=== PATIENT | male | born 1970 | race Caucasian/White ===

== ENCOUNTER 2016-11-03 00:30 | Emergency (ER) | payer OTHER ==
[2016-11-03 00:36] VITALS: RESP 20
[2016-11-03] MEDS ORDERED: IPRATROPIUM-ALBUTEROL 3 ML NEB INHALATION STA (00:54)
--- NOTE | 2016-11-03 01:06 | ED ---
URI HPI - General Chief Complaint: Upper Respiratory Infection Stated Complaint: DONNA Time Seen by Provider: 11/03/16 00:42 Source: patient, RN notes reviewed Mode of arrival: ambulatory Limitations: no limitations - History of Present Illness Initial Comments: 45-year-old male presents emergency Department chief complaint cough and congestion 4 days. Patient states he was seen at [facility] and diagnosed with acute bronchitis, strep throat. Patient states that his present antibiotics and Tessalon Perles. Patient states not helping. Patient states that he has not tried any other cough suppressants. Patient denies fever, chills, night sweats. Patient denies any dizziness. Patient denies any chest pain. - Related Data Home Medications Medication Instructions Recorded Confirmed Citalopram Hydrobromide [CeleXA] 40 mg PO DAILY 03/09/14 11/03/16 Insulin Aspart [NovoLOG] 20 unit SQ DIRECTED 03/09/14 11/03/16 Insulin Glargine [Lantus] 35 units INJ HS 03/09/14 11/03/16 Lisinopril [Zestril] 20 mg PO BID 03/09/14 11/03/16 metFORMIN HCL [Glucophage] 500 mg PO BID 03/09/14 11/03/16 Previous Rx's Medication Instructions Recorded Naproxen Sodium [Anaprox Ds] 550 mg PO Q12HR #20 tab 06/08/14 Ibuprofen [Motrin] 800 mg PO Q6HR PRN #20 tab 06/18/14 Sulfamethox-Tmp 800-160Mg [Bactrim 2 each PO Q12HR #40 tab 06/18/14 DS 800-160 mg] Albuterol Nebulized [Ventolin 2.5 mg INHALATION Q4H PRN #25 nebu 11/03/16 Nebulized] Promethaz-Cod 6.25-10 mg/5 ml 5 ml PO Q6HR PRN #120 ml 11/03/16 [Phenergan with Codeine] Allergies Allergy/AdvReac Type Severity Reaction Status Date / Time BANDAIDES AdvReac Itching Uncoded 11/03/16 00:36 Review of Systems ROS Statement: Those systems with pertinent positive or pertinent negative responses have been documented in the HPI. ROS Other: All systems not noted in ROS Statement are negative. Past Medical History Past Medical History: Diabetes Mellitus, Hypertension Additional Past Medical History / Comment(s): kidney stone, arthritis, bone spur History of Any Multi-Drug Resistant Organisms: MRSA Date of last positivie culture/infection: 11/01/2014 MDRO Source:: Abdomen Past Surgical History: Cholecystectomy Additional Past Surgical History / Comment(s): vasectomy Past Anesthesia/Blood Transfusion Reactions: No Reported Reaction Past Psychological History: Depression Smoking Status: Never smoker Past Alcohol Use History: Rare Past Drug Use History: None Reported General Exam Limitations: no limitations General appearance: alert, in no apparent distress Head exam: Present: atraumatic, normocephalic, normal inspection Eye exam: Present: normal appearance, PERRL, EOMI. Absent: scleral icterus, conjunctival injection, periorbital swelling ENT exam: Present: normal exam, normal oropharynx, mucous membranes moist, TM's normal bilaterally, normal external ear exam Neck exam: Present: normal inspection. Absent: tenderness, meningismus, lymphadenopathy Respiratory exam: Present: wheezes. Absent: normal lung sounds bilaterally, respiratory distress, rales, rhonchi, stridor Cardiovascular Exam: Present: regular rate, normal rhythm, normal heart sounds. Absent: systolic murmur, diastolic murmur, rubs, gallop, clicks GI/Abdominal exam: Present: soft, normal bowel sounds. Absent: distended, tenderness, guarding, rebound, rigid Course Vital Signs 11/03/16 11/03/16 11/03/16 00:34 01:34 01:38 Temperature 98.1 F Pulse Rate 90 84 88 Respiratory 20 Rate Blood Pressure 185/95 O2 Sat by Pulse 95 Oximetry Medical Decision Making - Medical Decision Making 45-year-old male presented for upper extremity cold-like symptoms. Patient does feel better after DuoNeb treatment. Patient will be sent home with albuterol treatments. Return parameters were discussed. Disposition Clinical Impression: Acute bronchitis with bronchospasm Disposition: HOME SELF-CARE Condition: Stable Instructions: Bronchospasm (ED) Additional Instructions: Please return to the Emergency Department if symptoms worsen or any other concerns. Prescriptions: Albuterol Nebulized [Ventolin Nebulized] 2.5 mg INHALATION Q4H PRN #25 nebu PRN Reason: difficulty in breathing Promethaz-Cod 6.25-10 mg/5 ml [Phenergan with Codeine] 5 ml PO Q6HR PRN #120 ml PRN Reason: Cough Time of Disposition: 01:52
--- NOTE | 2016-11-03 01:22 | XR ---
EXAMINATION TYPE: XR chest 2V DATE OF EXAM: 11/03/2016 1:09 AM COMPARISON: 06/08/2014 HISTORY: Cough and chest pain TECHNIQUE: Frontal and lateral views of the chest are obtained. FINDINGS: Heart and mediastinum are normal. Lungs are clear. Diaphragm is normal. Bony thorax is int act. IMPRESSION: Normal chest. No change.
[2016-11-03 02:04] VITALS: BP 169/95; PULSE 89; TEMP 98.5
== END 2016-11-03 02:04 | disposition home or self-care (01) ==
LOC: EC 00:30
DX: J20.9 Acute bronchitis, unspecified (principal); I10 Essential (primary) hypertension; E11.9 Type 2 diabetes mellitus without complications; Z79.4 Long term (current) use of insulin; Z79.899 Other long term (current) drug therapy; Z79.84 Long term (current) use of oral hypoglycemic drugs
CPT/HCPCS: 71020; 94640; 99285

== ENCOUNTER 2016-12-01 02:24 | Emergency (ER) | payer OTHER ==
[2016-12-01] MEDS ORDERED: KETOROLAC 60 MG/2 ML VIAL IM STA (03:23)
--- NOTE | 2016-12-01 03:26 | ED ---
Upper Extremity HPI - General Chief Complaint: Extremity Injury, Upper Stated Complaint: shoulder,elbow pain Time Seen by Provider: 12/01/16 03:18 Source: patient, RN notes reviewed Mode of arrival: ambulatory Limitations: no limitations - History of Present Illness Initial Comments: 45-year-old male presents to the emergency room chief complaint of right shoulder pain. Patient states about 2 weeks ago he went to move a box and felt a pop in his right shoulder. Patient states she's been having some increasing pain to the right shoulder with movement. Patient states that tonight he was just throbbing more so he thought that he should be seen. Patient states there is no fall was just a simple lifting. Patient denies any cough cold runny nose with this. Patient states that he just could not tolerate the pain anymore homes without that he should be seen.Patient denies any recent fever, chills, shortness of breath, chest pain, back pain, abdominal pain, nausea vomiting, numbness or tingling, dysuria or hematuria, constipation or diarrhea, headaches or visual changes, or any other current symptoms. - Related Data Home Medications Medication Instructions Recorded Confirmed Insulin Aspart [NovoLOG] 20 unit SQ DIRECTED 03/09/14 12/01/16 Insulin Glargine [Lantus] 50 units INJ HS 03/09/14 12/01/16 Lisinopril [Zestril] 40 mg PO BID 03/09/14 12/01/16 metFORMIN HCL [Glucophage] 500 mg PO BID 03/09/14 12/01/16 Atenolol [Tenormin] 50 mg PO BID 12/01/16 12/01/16 Previous Rx's Medication Instructions Recorded Naproxen Sodium [Anaprox Ds] 550 mg PO Q12HR #20 tab 06/08/14 Ibuprofen [Motrin] 600 mg PO Q6HR PRN #20 tab 12/01/16 Allergies Allergy/AdvReac Type Severity Reaction Status Date / Time BANDAIDES AdvReac Itching Uncoded 11/03/16 00:36 Review of Systems ROS Statement: Those systems with pertinent positive or pertinent negative responses have been documented in the HPI. ROS Other: All systems not noted in ROS Statement are negative. Past Medical History Past Medical History: Diabetes Mellitus, Hypertension Additional Past Medical History / Comment(s): kidney stone, arthritis, bone spur History of Any Multi-Drug Resistant Organisms: MRSA Date of last positivie culture/infection: 11/01/2014 MDRO Source:: Abdomen Past Surgical History: Cholecystectomy Additional Past Surgical History / Comment(s): vasectomy Past Anesthesia/Blood Transfusion Reactions: No Reported Reaction Past Psychological History: Depression Smoking Status: Never smoker Past Alcohol Use History: Rare Past Drug Use History: None Reported General Exam - General Exam Comments Initial Comments: General: The patient is awake and alert, in no distress, and does not appear acutely ill. Neck: The neck is supple, there is no tenderness. Cardiovascular: There is a regular rate and rhythm. No murmur, rub or gallop is appreciated. Respiratory: Lungs are clear to auscultation, respirations are non-labored, breath sounds are equal. No wheezes, stridor, rales, or rhonchi. Musculoskeletal: Sensation intact with 2+ pulses that her upper joint. Full range of motion of the right hand right wrist and right elbow. Patient's physician tenderness anteriorly to the right shoulder. Patient has full passive range of motion of the right shoulder patient has about 2% active range of motion prior to pain. Negative drop arm test. Neurological: CN II-XII intact, There are no obvious motor or sensory deficits. Coordination appears grossly intact. Speech is normal. Skin: Skin is warm and dry and no rashes or lesions are noted. Psychiatric: Normal mood and affect. Limitations: no limitations Course Vital Signs 12/01/16 03:11 Temperature 98.2 F Pulse Rate 78 Respiratory 18 Rate Blood Pressure 185/98 O2 Sat by Pulse 97 Oximetry Medical Decision Making - Medical Decision Making 45-year-old male presents for right shoulder pain. This time patient perseverates shoulder strain. We did start him on anti-inflammatories. We discussed follow-up with orthopedic and he is given information. We discussed return parameters all patient's and family's questions. They're given the plan and they state that they understand. This time he will be discharged home. - Radiology Data Radiology results: report reviewed, image reviewed Disposition Clinical Impression: Sprain of right shoulder, Right shoulder tendonitis Disposition: HOME SELF-CARE Condition: Stable Instructions: Rotator Cuff Injury (ED) Additional Instructions: Please use medication as discussed. Please follow up with family doctor if symptoms have not improved over the next two days. Please return to the emergency room if your symptoms increase or worsen or for any other concerns. Prescriptions: Ibuprofen [Motrin] 600 mg PO Q6HR PRN #20 tab PRN Reason: Pain Referrals: Aashish Angelo DO [Primary Care Provider] - 1-2 days Girish Toro MD [STAFF PHYSICIAN] - 1-2 days Time of Disposition: 04:07
--- NOTE | 2016-12-01 03:54 | XR ---
EXAMINATION TYPE: XR shoulder complete RT DATE OF EXAM: 12/01/2016 3:38 AM COMPARISON: NONE HISTORY: Shoulder pain TECHNIQUE: 7 views FINDINGS: I see no fracture nor dislocation. There is some calcification at the greater tuberosity of the humerus. AC joint is intact. IMPRESSION: There is evidence of mild calcific tendinitis. No fracture.
[2016-12-01 04:48] VITALS: BP 178/72; PULSE 88; RESP 20; TEMP 97.5
== END 2016-12-01 04:47 | disposition home or self-care (01) ==
LOC: EC 02:24
DX: S43.401A Unspecified sprain of right shoulder joint, initial encounter (principal); M77.9 Enthesopathy, unspecified; X58.XXXA Exposure to other specified factors, initial encounter; E11.9 Type 2 diabetes mellitus without complications; Z79.4 Long term (current) use of insulin; Z79.899 Other long term (current) drug therapy; E16.2 Hypoglycemia, unspecified; I10 Essential (primary) hypertension
CPT/HCPCS: 73030; 99283; 96372; J1885

== ENCOUNTER 2018-03-05 23:19 | Emergency (ER) | payer OTHER ==
[2018-03-06] MEDS ORDERED: KETOROLAC 30 MG/ML 1 ML VIAL IM STA (00:11)
--- NOTE | 2018-03-06 00:16 | ED ---
Extremity Problem HPI - General Chief complaint: Extremity Problem,Nontraumatic Stated complaint: rt knee pain Time Seen by Provider: 03/06/18 00:07 Source: patient Mode of arrival: ambulatory Limitations: no limitations - History of Present Illness Initial comments: 47 year-old male patient presents to the emergency department today for complaints of right knee pain. Patient states that he has been having increased pain to the right knee for the last 2 days. States he does have a known varicose vein to the area. States that the area has become red and hot over the course of the day today. Patient states he has been taking ibuprofen which has not helped much with his discomfort. He denies any injuries. He denies any fever or chills with this. Denies any numbness or tingling to the leg. Denies any recent travel. Patient does have a past medical history significant for diabetes and hypertension, states that both are well controlled. Patient denies any recent rash, fever, chills, shortness breath, chest pain, palpitations, abdominal pain, nausea, vomiting, diarrhea, constipation, back pain, numbness, tingling, dizziness, weakness, hematuria, dysuria, urinary urgency, urinary frequency, headache, visual changes, or any other complaints. - Related Data Home Medications Medication Instructions Recorded Confirmed Insulin Aspart [NovoLOG] 40 unit SQ AC-BRKFST 03/09/14 03/05/18 Lisinopril [Zestril] 40 mg PO DIRECTED 03/09/14 12/01/16 metFORMIN HCL [Glucophage] 500 mg PO BID 03/09/14 03/05/18 Atenolol [Tenormin] 50 mg PO BID 12/01/16 03/05/18 Insulin Aspart [NovoLOG 30 unit SQ AC-SUPPER 03/05/18 03/05/18 (formulary)] Insulin Aspart [NovoLOG 40 unit SQ AC-LUNCH 03/05/18 03/05/18 (formulary)] Insulin Glargine,Hum.rec.anlog 40 unit SQ HS 03/05/18 03/05/18 [Basaglar Katieikpen U-100] Unknown New Bp Med 1 tab PO DIRECTED 03/05/18 03/05/18 Allergies Allergy/AdvReac Type Severity Reaction Status Date / Time BANDAIDES AdvReac Rash/Hives Uncoded 03/05/18 23:49 Review of Systems ROS Statement: Those systems with pertinent positive or pertinent negative responses have been documented in the HPI. ROS Other: All systems not noted in ROS Statement are negative. Past Medical History Past Medical History: Diabetes Mellitus, Hypertension Additional Past Medical History / Comment(s): kidney stone, arthritis, bone spur History of Any Multi-Drug Resistant Organisms: MRSA Date of last positivie culture/infection: 11/01/2014 MDRO Source:: Abdomen Past Surgical History: Cholecystectomy Additional Past Surgical History / Comment(s): vasectomy Past Anesthesia/Blood Transfusion Reactions: No Reported Reaction Past Psychological History: Depression Smoking Status: Never smoker Past Alcohol Use History: Rare Past Drug Use History: None Reported General Exam Limitations: no limitations General appearance: alert, in no apparent distress, other (This is a well- developed, morbidly obese male patient in no acute distress. Vital signs upon presentation are temperature 97.7F, pulse 90, respirations 20, blood pressure 181/89, pulse ox 98% on room air.) Respiratory exam: Present: normal lung sounds bilaterally. Absent: respiratory distress, wheezes, rales, rhonchi, stridor Cardiovascular Exam: Present: regular rate, normal rhythm, normal heart sounds. Absent: systolic murmur, diastolic murmur, rubs, gallop, clicks GI/Abdominal exam: Present: soft, normal bowel sounds. Absent: distended, tenderness, guarding, rebound, rigid Extremities exam: Present: full ROM, tenderness (Right anterior knee), normal capillary refill, other (There is linear area of tenderness, warmth, and erythema to the right anterior knee. Remainder of leg is pink, warm, and dry. Cap refill is less than 3 seconds. Pedal and post tibial pulses 2+ and equal bilaterally. ). Absent: normal inspection, pedal edema, joint swelling, calf tenderness Neurological exam: Present: alert, oriented X3, CN II-XII intact Psychiatric exam: Present: normal affect, normal mood Skin exam: Present: warm, dry, intact, normal color. Absent: rash Course Vital Signs 03/05/18 03/06/18 03/06/18 23:26 01:29 02:07 Temperature 97.7 F 97.8 F Pulse Rate 90 65 Respiratory 20 18 Rate Blood Pressure 181/89 147/62 O2 Sat by Pulse 98 98 Oximetry Medical Decision Making - Medical Decision Making 47 old male patient presented to the emergency department today for evaluation of pain and erythema to the right knee. Ultrasound venous Doppler duplex was obtained and showed no acute deep venous thrombosis to the right lower extremity. Did discuss findings with the patient. Did discuss that his symptoms are most consistent with a superficial thrombophlebitis. He is instructed to take his home Motrin 3 times daily with food, he is instructed to apply warm compresses to the right knee. He is instructed to follow-up with his primary care physician for recheck in 1-2 days. Return parameters discussed. He verbalizes understanding and agrees with this plan. - Radiology Data Radiology results: report reviewed, image reviewed Ultrasound duplex right lower extremity of the veins was obtained, report was reviewed in its entirety. Impression by Dr. Moreira shows no evidence of deep venous thrombosis. Disposition Clinical Impression: Phlebitis of right leg Disposition: HOME SELF-CARE Condition: Good Instructions: Superficial Thrombophlebitis (ED) Additional Instructions: Apply warm compresses to the right knee. Continue taking ibuprofen 3 times daily with food. Follow-up with your primary care physician for recheck in 1-2 days. Return here immediately for any new, worsening, or concerning symptoms. Is patient prescribed a controlled substance at d/c from ED?: No Referrals: Aashish Angelo DO [Primary Care Provider] - 1-2 days Time of Disposition: 01:42
[2018-03-06 01:30] VITALS: BP 147/62; PULSE 65; RESP 18
--- NOTE | 2018-03-06 01:38 | US ---
EXAM: US Duplex Right Lower Extremity Veins CLINICAL HISTORY: ITS.REASON US Reason: Pain TECHNIQUE: Real-time duplex ultrasound scan of the right lower extremity veins integrating B-mode two-dimensional vascular structure, Doppler spectral analysis, color flow Doppler imaging and compression. COMPARISON: 06/22/14. FINDINGS: Deep veins: No DVT in the visualized common femoral, femoral, proximal deep femoral or popliteal veins. The veins are compressible with normal color flow and augmentation. Superficial veins: Unremarkable as visualized. Soft tissues: No acute findings. IMPRESSION: No evidence of deep venous thrombosis.
[2018-03-06 02:08] VITALS: TEMP 97.8
== END 2018-03-06 02:07 | disposition home or self-care (01) ==
LOC: EC 23:19
DX: I80.3 Phlebitis and thrombophlebitis of lower extremities, unspecified (principal); I10 Essential (primary) hypertension; E11.9 Type 2 diabetes mellitus without complications; E66.01 Morbid (severe) obesity due to excess calories; Z79.4 Long term (current) use of insulin; Z79.899 Other long term (current) drug therapy; Z91.048 Other nonmedicinal substance allergy status; Z86.14 Personal history of Methicillin resistant Staphylococcus aureus infection; Z68.44 Body mass index [BMI] 60.0-69.9, adult
CPT/HCPCS: 99283; 93971; J1885

== ENCOUNTER 2018-04-20 05:12 | Emergency (ER) | payer OTHER ==
--- NOTE | 2018-04-20 05:22 | ED ---
General Adult HPI - General Stated complaint: Left Ankle Injury Time Seen by Provider: 04/20/18 05:15 Source: RN notes reviewed - History of Present Illness Initial comments: This is a 47-year-old male who presents emergency Department complaining of left foot pain. Patient states she stepped in a soft spot ER early in the week and hurting and then tonight walking up the stairs his foot slipped off the step and now his foot hurts more. When you ask him where exactly his foot hurts she says the whole foot and he is not specific about. Patient does deny ankle pain or knee pain. - Related Data Home Medications Medication Instructions Recorded Confirmed Insulin Aspart [NovoLOG] 40 unit SQ AC-BRKFST 03/09/14 03/05/18 Lisinopril [Zestril] 40 mg PO DIRECTED 03/09/14 12/01/16 metFORMIN HCL [Glucophage] 500 mg PO BID 03/09/14 03/05/18 Atenolol [Tenormin] 50 mg PO BID 12/01/16 03/05/18 Insulin Aspart [NovoLOG 30 unit SQ AC-SUPPER 03/05/18 03/05/18 (formulary)] Insulin Aspart [NovoLOG 40 unit SQ AC-LUNCH 03/05/18 03/05/18 (formulary)] Insulin Glargine,Hum.rec.anlog 40 unit SQ HS 03/05/18 03/05/18 [Basaglar Kwikpen U-100] Unknown New Bp Med 1 tab PO DIRECTED 03/05/18 03/05/18 Allergies Allergy/AdvReac Type Severity Reaction Status Date / Time BANDAIDES AdvReac Rash/Hives Uncoded 03/05/18 23:49 Review of Systems ROS Statement: Those systems with pertinent positive or pertinent negative responses have been documented in the HPI. ROS Other: All systems not noted in ROS Statement are negative. Past Medical History Past Medical History: Diabetes Mellitus, Hypertension Additional Past Medical History / Comment(s): kidney stone, arthritis, bone spur History of Any Multi-Drug Resistant Organisms: MRSA Date of last positivie culture/infection: 11/01/2014 MDRO Source:: Abdomen Past Surgical History: Cholecystectomy Additional Past Surgical History / Comment(s): vasectomy Past Anesthesia/Blood Transfusion Reactions: No Reported Reaction Past Psychological History: Depression Smoking Status: Never smoker Past Alcohol Use History: Rare Past Drug Use History: None Reported General Exam - General Exam Comments Initial Comments: GENERAL Patient is well-developed and well-nourished. Patient is in mild distress. EYES Patient's pupils are equal and round. Extraocular motion is intact SKIN Unremarkable NEURO The patient is alert and oriented 3 PYSCH Patient has normal interpersonal interactions. MUSCULOSKELETAL Patient has some minimal tenderness over the first metatarsal Course Vital Signs 04/20/18 05:21 Temperature 98.5 F Pulse Rate 87 Respiratory 18 Rate Blood Pressure 143/93 O2 Sat by Pulse 96 Oximetry Medical Decision Making - Medical Decision Making X-ray shows no acute abnormality. Patient is able to ambulate on the foot. Disposition Clinical Impression: Foot sprain Disposition: HOME SELF-CARE Condition: Good Instructions: Foot Sprain (ED) Is patient prescribed a controlled substance at d/c from ED?: No Referrals: Aashish Angelo DO [Primary Care Provider] - 1-2 days Time of Disposition: 05:34
[2018-04-20 05:23] VITALS: RESP 18
[2018-04-20] MEDS ORDERED: KETOROLAC 60 MG/2 ML VIAL IM STA (05:34)
--- NOTE | 2018-04-20 06:20 | XR ---
EXAM: XR Left Foot Complete, 3 or More Views CLINICAL HISTORY: ITS.REASON XR Reason: Pain TECHNIQUE: Frontal, lateral and oblique views of the left foot. COMPARISON: No relevant prior studies available. FINDINGS: Bones/joints: Marginal osteophytes at the talonavicular joint. No acute fracture. No dislocation. Soft tissues: Diffuse soft tissue swelling. No radiopaque foreign body. IMPRESSION: Diffuse soft tissue swelling.
[2018-04-20 06:31] VITALS: BP 126/58; PULSE 72; TEMP 97.6
== END 2018-04-20 06:29 | disposition home or self-care (01) ==
LOC: EC 05:12
DX: S93.602A Unspecified sprain of left foot, initial encounter (principal); E11.9 Type 2 diabetes mellitus without complications; I10 Essential (primary) hypertension; Z86.14 Personal history of Methicillin resistant Staphylococcus aureus infection; Z79.4 Long term (current) use of insulin; Z79.899 Other long term (current) drug therapy; Z91.048 Other nonmedicinal substance allergy status; W18.43XA Slipping, tripping and stumbling without falling due to stepping from one level to another, initial encounter; Y92.009 Unspecified place in unspecified non-institutional (private) residence as the place of occurrence of the external cause; Y93.01 Activity, walking, marching and hiking
CPT/HCPCS: 73630; 99283; 96372; J1885

== ENCOUNTER 2018-05-09 20:14 | Emergency (ER) | payer OTHER ==
[2018-05-09 21:37] LABS: Basophils # (A) 0.1 k/uL (0-0.2); Basophils % (A) 1 %; Eosinophils # (A) 0.3 k/uL (0-0.7); Eosinophils % (A) 3 %; HCT 40.9 % (39.0-53.0); HGB 13.7 gm/dL (13.0-17.5); Lymphocytes # (A) 2.3 k/uL (1.0-4.8); Lymphocytes % (A) 24 %; MCH 29.9 pg (25.0-35.0); MCHC 33.5 g/dL (31.0-37.0); MCV 89.5 fL (80.0-100.0); Mean Platelet Volume 7.1; Monocytes # (A) 0.6 k/uL (0-1.0); Monocytes % (A) 6 %; Neutrophils # (A) 6.1 k/uL (1.3-7.7); Neutrophils % (A) 65 %; Platelet Count 291 k/uL (150-450); RBC 4.57 m/uL (4.30-5.90); RDW 13.7 % (11.5-15.5); WBC 9.4 k/uL (3.8-10.6)
[2018-05-09 21:44] LABS: INR 1.2 (<1.2); Partial Thromboplastin Time 23.1 sec (22.0-30.0); Prothrombin Time 11.8 sec (9.0-12.0)
[2018-05-09 21:45] LABS: ALT 58 U/L (21-72); AST 52 U/L (17-59); Alkaline Phosphatase 56 U/L (38-126); Amylase 31 U/L (30-110); Anion Gap 13 mmol/L; Blood Urea Nitrogen 10 mg/dL (9-20); Calcium 9.4 mg/dL (8.4-10.2); Carbon Dioxide 27 mmol/L (22-30); Chloride 100 mmol/L (98-107); Glucose 194 mg/dL (74-99); Lipase 35 U/L (23-300); Potassium 4.2 mmol/L (3.5-5.1); Sodium 140 mmol/L (137-145); Total Bilirubin 0.5 mg/dL (0.2-1.3)
--- NOTE | 2018-05-09 22:15 | ED ---
Nausea/Vomiting/Diarrhea HPI - General Chief complaint: Nausea/Vomiting/Diarrhea Stated complaint: Vomiting Time Seen by Provider: 05/09/18 21:02 Source: patient, RN notes reviewed Mode of arrival: ambulatory Limitations: no limitations - History of Present Illness Initial comments: This is a 47-year-old male who presents to the emergency department with chief complaint of vomiting and diarrhea. Patient states that he has been unable to keep down any solid foods for the past one month. He states that over the past 2 weeks his vomiting and diarrhea has increased. He states he feels full even after eating a few pieces of watermelon and instantly becomes nauseous. Patient states he has been trying to eat small amounts because he is diabetic. Patient also complains of right testicular pain that has been present for the past one month as well. He describes it as a squeezing and stabbing sensation. He states that this is not constant, it does not occur while he is sitting, only when he is standing. Patient does report a history of vasectomy. He also reports a history of cholecystectomy. Patient is morbidly obese and has type 2 diabetes and hypertension. Denies any significant abdominal pain. Denies fevers or chills chest pain or shortness of breath, constipation, dysuria or hematuria. Denies flank pain. - Related Data Home Medications Medication Instructions Recorded Confirmed Insulin Aspart [NovoLOG] 40 unit SQ AC-BRKFST 03/09/14 03/05/18 Lisinopril [Zestril] 40 mg PO DIRECTED 03/09/14 12/01/16 metFORMIN HCL [Glucophage] 500 mg PO BID 03/09/14 03/05/18 Atenolol [Tenormin] 50 mg PO BID 12/01/16 03/05/18 Insulin Aspart [NovoLOG 30 unit SQ AC-SUPPER 03/05/18 03/05/18 (formulary)] Insulin Aspart [NovoLOG 40 unit SQ AC-LUNCH 03/05/18 03/05/18 (formulary)] Insulin Glargine,Hum.rec.anlog 40 unit SQ HS 03/05/18 03/05/18 [Basaglar Kwikpen U-100] Unknown New Bp Med 1 tab PO DIRECTED 03/05/18 03/05/18 Allergies Allergy/AdvReac Type Severity Reaction Status Date / Time BANDAIDES AdvReac Rash/Hives Uncoded 05/09/18 20:42 Review of Systems ROS Statement: Those systems with pertinent positive or pertinent negative responses have been documented in the HPI. ROS Other: All systems not noted in ROS Statement are negative. Past Medical History Past Medical History: Diabetes Mellitus, Hypertension Additional Past Medical History / Comment(s): kidney stone, arthritis, bone spur History of Any Multi-Drug Resistant Organisms: MRSA Date of last positivie culture/infection: 11/01/2014 MDRO Source:: Abdomen Past Surgical History: Cholecystectomy Additional Past Surgical History / Comment(s): vasectomy Past Anesthesia/Blood Transfusion Reactions: No Reported Reaction Past Psychological History: Depression Smoking Status: Never smoker Past Alcohol Use History: Rare Past Drug Use History: None Reported General Exam - General Exam Comments Initial Comments: General: Awake and alert, well-developed; in no apparent distress. Morbidly obese male lying comfortably on ED stretcher. HEENT: Head atraumatic, normocephalic. Pupils are equal, round and reactive to light. Extraocular movements intact. Oropharynx moist without erythema or exudate. Neck: Supple. Normal ROM. Cardiovascular: Regular rate and rhythm. No murmurs, rubs or gallops. Chest symmetrical. Respiratory: Lungs clear to auscultation bilaterally. No wheezes, rales or rhonchi. Normal respiratory effort with no use of accessory muscles. Abdomen: Soft, non-distended. Mild tenderness on palpation of epigastric region and right upper quadrant. No rigidity, rebound or guarding. Normal bowel sounds in all 4 quadrants. Musculoskeletal: Normal ROM, no tenderness bilateral upper and lower extremities. Ambulating normally. Skin: [place], warm and dry without rashes or lesions. Neurological: Alert and oriented x3. CN II-XII grossly intact. Speech is fluent and answers are appropriate. No focal neuro deficits. Psychiatric: Normal mood and affect. No overt signs of depression or anxiety noted. Limitations: no limitations exam: Present: normal inspection, testicular tenderness (right testicle). Absent: urethral discharge, scrotal swelling Course Vital Signs 05/09/18 05/09/18 20:38 23:50 Temperature 97.9 F 98.5 F Pulse Rate 84 74 Respiratory 16 20 Rate Blood Pressure 150/84 157/74 O2 Sat by Pulse 97 97 Oximetry Medical Decision Making - Medical Decision Making This is a 47-year-old male presents to the emergency department chief complaint of vomiting and diarrhea for the past one month. He states that this has worsened over the past 2 weeks. CBC, CMP and UA are unremarkable. Patient also complained of right testicular pain for the past one month. An ultrasound with Doppler was obtained and revealed no acute abnormalities. Findings were discussed with patient. Recommend following up with gastroenterology if symptoms persist. Vital signs are stable and patient is in no acute distress. He is discharged at this time. He is in agreement with plan and voices understanding. All questions answered. - Lab Data Result diagrams: 05/09/18 21:21 05/09/18 21:21 Lab Results 05/09/18 05/09/18 05/09/18 Range/Units 21:21 21:21 21:21 WBC 9.4 (3.8-10.6) k/uL RBC 4.57 (4.30-5.90) m/uL Hgb 13.7 (13.0-17.5) gm/dL Hct 40.9 (39.0-53.0) % MCV 89.5 (80.0-100.0) fL MCH 29.9 (25.0-35.0) pg MCHC 33.5 (31.0-37.0) g/dL RDW 13.7 (11.5-15.5) % Plt Count 291 (150-450) k/uL Neutrophils % 65 % Lymphocytes % 24 % Monocytes % 6 % Eosinophils % 3 % Basophils % 1 % Neutrophils # 6.1 (1.3-7.7) k/uL Lymphocytes # 2.3 (1.0-4.8) k/uL Monocytes # 0.6 (0-1.0) k/uL Eosinophils # 0.3 (0-0.7) k/uL Basophils # 0.1 (0-0.2) k/uL PT 11.8 (9.0-12.0) sec INR 1.2 H (<1.2) APTT 23.1 (22.0-30.0) sec Sodium 140 (137-145) mmol/L Potassium 4.2 (3.5-5.1) mmol/L Chloride 100 (98-107) mmol/L Carbon Dioxide 27 (22-30) mmol/L Anion Gap 13 mmol/L BUN 10 (9-20) mg/dL Creatinine 0.60 L (0.66-1.25) mg/dL Est GFR (CKD-EPI)AfAm >90 (>60 ml/min/1.73 sqM) Est GFR (CKD-EPI)NonAf >90 (>60 ml/min/1.73 sqM) Glucose 194 H (74-99) mg/dL Calcium 9.4 (8.4-10.2) mg/dL Total Bilirubin 0.5 (0.2-1.3) mg/dL AST 52 (17-59) U/L ALT 58 (21-72) U/L Alkaline Phosphatase 56 (38-126) U/L Total Protein 7.0 (6.3-8.2) g/dL Albumin 4.0 (3.5-5.0) g/dL Amylase 31 (30-110) U/L Lipase 35 (23-300) U/L Urine Color Urine Appearance (Clear) Urine pH (5.0-8.0) Ur Specific [place] (1.001-1.035) Urine Protein (Negative) Urine Glucose (UA) (Negative) Urine Ketones (Negative) Urine Blood (Negative) Urine Nitrite (Negative) Urine Bilirubin (Negative) Urine Urobilinogen (<2.0) mg/dL Ur Leukocyte Esterase (Negative) Urine RBC (0-5) /hpf Urine WBC (0-5) /hpf Ur Squamous Epith Cells (0-4) /hpf Hyaline Casts (0-2) /lpf Urine Mucus (None) /hpf 05/09/18 Range/Units 23:12 WBC (3.8-10.6) k/uL RBC (4.30-5.90) m/uL Hgb (13.0-17.5) gm/dL Hct (39.0-53.0) % MCV (80.0-100.0) fL MCH (25.0-35.0) pg MCHC (31.0-37.0) g/dL RDW (11.5-15.5) % Plt Count (150-450) k/uL Neutrophils % % Lymphocytes % % Monocytes % % Eosinophils % % Basophils % % Neutrophils # (1.3-7.7) k/uL Lymphocytes # (1.0-4.8) k/uL Monocytes # (0-1.0) k/uL Eosinophils # (0-0.7) k/uL Basophils # (0-0.2) k/uL PT (9.0-12.0) sec INR (<1.2) APTT (22.0-30.0) sec Sodium (137-145) mmol/L Potassium (3.5-5.1) mmol/L Chloride (98-107) mmol/L Carbon Dioxide (22-30) mmol/L Anion Gap mmol/L BUN (9-20) mg/dL Creatinine (0.66-1.25) mg/dL Est GFR (CKD-EPI)AfAm (>60 ml/min/1.73 sqM) Est GFR (CKD-EPI)NonAf (>60 ml/min/1.73 sqM) Glucose (74-99) mg/dL Calcium (8.4-10.2) mg/dL Total Bilirubin (0.2-1.3) mg/dL AST (17-59) U/L ALT (21-72) U/L Alkaline Phosphatase (38-126) U/L Total Protein (6.3-8.2) g/dL Albumin (3.5-5.0) g/dL Amylase (30-110) U/L Lipase (23-300) U/L Urine Color Yellow Urine Appearance Cloudy (Clear) Urine pH 5.5 (5.0-8.0) Ur Specific [place] 1.043 H (1.001-1.035) Urine Protein Trace H (Negative) Urine Glucose (UA) Negative (Negative) Urine Ketones Negative (Negative) Urine Blood Negative (Negative) Urine Nitrite Negative (Negative) Urine Bilirubin Negative (Negative) Urine Urobilinogen <2.0 (<2.0) mg/dL Ur Leukocyte Esterase Negative (Negative) Urine RBC 3 (0-5) /hpf Urine WBC 3 (0-5) /hpf Ur Squamous Epith Cells 1 (0-4) /hpf Hyaline Casts 10 H (0-2) /lpf Urine Mucus Few H (None) /hpf - Radiology Data Radiology results: report reviewed CT abdomen and pelvis with contrast impression: No evidence of renal stone or obstruction. No dilated ducts. Exam limited due to patient's size. Subtle inflammatory change in the mesenteric fat or pericolic fat cannot be evaluated because of the patient's size. Ultrasound scrotum with Doppler impression: Negative exam. No evidence of testicular torsion or mass. Disposition Clinical Impression: Vomiting and diarrhea Disposition: HOME SELF-CARE Condition: Good Instructions: Acute Nausea and Vomiting (ED), Acute Diarrhea (ED) Additional Instructions: Please take medications as prescribed. Please follow up with primary care provider within 1-2 days. Return to emergency department if symptoms should worsen or any concerns arise. Is patient prescribed a controlled substance at d/c from ED?: No Referrals: Aashish Angelo DO [Primary Care Provider] - 1-2 days Gerard Sarah MD [STAFF PHYSICIAN] - 1-2 days Time of Disposition: 23:40
--- NOTE | 2018-05-09 22:22 | US ---
EXAMINATION TYPE: US scrotum with doppler. Grayscale and color Doppler Duplex imaging performed of t le scrotum. DATE OF EXAM: 05/09/2018 COMPARISON: 02/12/2011 CLINICAL HISTORY: Pain. rt scrotal pain on dr's exam EXAM MEASUREMENTS: TESTICLES: Right Testicle: 4.1 x 2.7 x 3.1 cm Left Testicle: 4.6 x 2.2 x 2.6 cm Bilateral EPIDIDYMIS HEAD: wnl Bilateral homogeneous echopattern. Doppler performed to assess for testicular vascularity; good bila teral color flow and waveforms are seen. There is no evidence of testicular torsion. Presence of hydroceles: no Presence of varicoceles: no IMPRESSION: Negative exam. No evidence of testicular torsion or mass.
--- NOTE | 2018-05-09 23:16 | CT ---
EXAMINATION TYPE: CT abdomen pelvis w con DATE OF EXAM: 05/09/2018 COMPARISON: HISTORY: Nausea, vomiting and diarrhea x 1 month with right testicular swelling. CT DLP: 4586.80 mGycm Automated exposure control for dose reduction was used. TECHNIQUE: Helical acquisition of images was performed from the lung bases through the pelvis. CONTRAST: Performed without Oral Contrast and with IV Contrast, patient injected with 100 mL of Isovue 300. FINDINGS: Lung bases are clear. There is no pleural effusion. There is no pericardial effusion. Liver shows no focal defect. There are clips from cholecystectomy. Spleen and pancreas appear normal. The bile ducts are not dilated. There is no adrenal mass. Kidneys show satisfactory contrast opacification. There is no hydronephrosi s. Ureters are not dilated. There is umbilical hernia that contains fat. There is no retroperitoneal adenopathy. There is no ascites. Exam is limited by the patient's size. I see no intestinal wall thic kening. There are no dilated loops. There is prostatic calcification. Bladder is normal renal. There is no free fluid in the pelvis. There is no sign of appendicitis. Appendix is not well seen. Tissue c ontrast is limited because of the artifact. I see no bony destructive process. There is no sign of miguel mbar compression fracture. IMPRESSION: NO EVIDENCE OF RENAL STONE OR OBSTRUCTION. NO DILATED DUCTS. EXAM LIMITED DUE TO PATIENT SIZE. SUBTLE INFLAMMATORY CHANGE IN THE MESENTERIC FAT OR PERICOLIC FAT CANNOT BE EVALUATED BECAUSE OF THE PATIEN T'S SIZE.
[2018-05-09 23:26] LABS: Appearance,Urine Cloudy (Clear); Bilirubin,Urine Negative (Negative); Blood,Urine Negative (Negative); Color,Urine Yellow; Glucose,Urine (UA) Negative (Negative); Hyaline Casts,Urine 10 /lpf (0-2); Ketones,Urine Negative (Negative); Leukocyte Esterase,Urine Negative (Negative); Mucus,Urine Few /hpf; Nitrite,Urine Negative (Negative); PH, Urine 5.5 (5.0-8.0); Protein,Urine Trace (Negative); RBC,Urine 3 /hpf (0-5); Specific Gravity,Urine 1.043 (1.001-1.035); Squamous Epithelial Cell,Urine 1 /hpf (0-4); Urobilinogen,Urine <2.0 mg/dL (<2.0); WBC,Urine 3 /hpf (0-5)
[2018-05-09 23:51] VITALS: BP 157/74; PULSE 74; RESP 20; TEMP 98.5
== END 2018-05-09 23:52 | disposition home or self-care (01) ==
LOC: EC 20:14
DX: R19.7 Diarrhea, unspecified (principal); R11.10 Vomiting, unspecified; N50.811 Right testicular pain; I10 Essential (primary) hypertension; E11.9 Type 2 diabetes mellitus without complications; E66.01 Morbid (severe) obesity due to excess calories; Z79.4 Long term (current) use of insulin; Z79.899 Other long term (current) drug therapy; Z91.048 Other nonmedicinal substance allergy status; Z86.14 Personal history of Methicillin resistant Staphylococcus aureus infection; Z90.49 Acquired absence of other specified parts of digestive tract; Z98.52 Vasectomy status; Z68.44 Body mass index [BMI] 60.0-69.9, adult
CPT/HCPCS: 36415; 80053; 82150; 83690; 85025; 85610; 85730; 81001; 93975; 76870; 74177; 99284; Q9967

== ENCOUNTER 2018-07-06 22:30 | Emergency (ER) | payer OTHER ==
[2018-07-06 22:35] VITALS: RESP 18
--- NOTE | 2018-07-06 23:02 | ED ---
Upper Extremity HPI - General Chief Complaint: Extremity Injury, Upper Stated Complaint: left shoulder pain Time Seen by Provider: 07/06/18 22:41 Source: patient, RN notes reviewed Mode of arrival: ambulatory Limitations: no limitations - History of Present Illness Initial Comments: 47-year-old male presents emergency Department chief complaint of left shoulder pain. This has been present for last 1 month progressively getting worse. Denies any trauma. He states it hurts more when he goes to lift it. Patient is right-hand dominant. He has no weakness to his hand denies any paresthesias. Patient denies any neck pain, headache or dizziness. Patient states that he's had no prior surgeries or injuries to his left shoulder. - Related Data Home Medications Medication Instructions Recorded Confirmed Insulin Aspart [NovoLOG] 40 unit SQ AC-BRKFST 03/09/14 03/05/18 Lisinopril [Zestril] 40 mg PO DIRECTED 03/09/14 12/01/16 metFORMIN HCL [Glucophage] 500 mg PO BID 03/09/14 03/05/18 Atenolol [Tenormin] 50 mg PO BID 12/01/16 03/05/18 Insulin Aspart [NovoLOG 30 unit SQ AC-SUPPER 03/05/18 03/05/18 (formulary)] Insulin Aspart [NovoLOG 40 unit SQ AC-LUNCH 03/05/18 03/05/18 (formulary)] Insulin Glargine,Hum.rec.anlog 40 unit SQ HS 03/05/18 03/05/18 [Basaglar Kwikpen U-100] Unknown New Bp Med 1 tab PO DIRECTED 03/05/18 03/05/18 Previous Rx's Medication Instructions Recorded Ibuprofen [Motrin] 600 mg PO Q8HR PRN #30 tab 07/06/18 Allergies Allergy/AdvReac Type Severity Reaction Status Date / Time BANDAIDES AdvReac Rash/Hives Uncoded 07/06/18 22:35 Review of Systems ROS Statement: Those systems with pertinent positive or pertinent negative responses have been documented in the HPI. ROS Other: All systems not noted in ROS Statement are negative. Past Medical History Past Medical History: Diabetes Mellitus, Hypertension Additional Past Medical History / Comment(s): kidney stone, arthritis, bone spur History of Any Multi-Drug Resistant Organisms: MRSA Date of last positivie culture/infection: 11/01/2014 MDRO Source:: Abdomen Past Surgical History: Cholecystectomy Additional Past Surgical History / Comment(s): vasectomy Past Anesthesia/Blood Transfusion Reactions: No Reported Reaction Past Psychological History: Depression Smoking Status: Never smoker Past Alcohol Use History: Rare Past Drug Use History: None Reported General Exam Limitations: no limitations General appearance: alert, in no apparent distress Head exam: Present: atraumatic, normocephalic, normal inspection Eye exam: Present: normal appearance, PERRL, EOMI. Absent: scleral icterus, conjunctival injection, periorbital swelling Neck exam: Present: normal inspection, full ROM. Absent: tenderness, meningismus, lymphadenopathy Respiratory exam: Present: normal lung sounds bilaterally. Absent: respiratory distress, wheezes, rales, rhonchi, stridor Cardiovascular Exam: Present: regular rate, normal rhythm, normal heart sounds. Absent: systolic murmur, diastolic murmur, rubs, gallop, clicks Extremities exam: Present: other (Left shoulder limited range of motion second pain there is no iris deformity no swelling no erythema there is no increased warmth, there is no rashes noted. Patient has no localized tenderness with palpation patient has equal snow blower strength bilaterally, neurovascular intact) Skin exam: Present: warm, dry, intact, normal color. Absent: rash Course Vital Signs 07/06/18 22:32 Temperature 98.3 F Pulse Rate 90 Respiratory 18 Rate Blood Pressure 178/100 O2 Sat by Pulse 98 Oximetry Medical Decision Making - Medical Decision Making 47-year-old male presented for nontraumatic left shoulder injury. Patient symptoms are worse with movement. Patient's symptoms have been present for greater than 1 month. Patient had x-ray which showed no acute abnormality. Patient has left rotator cuff injury, tendinitis. Patient advised take anti- inflammatories and follow-up PCP or orthopedics for physical therapy and further evaluation. Disposition Clinical Impression: Rotator cuff injury, Tendinitis of left shoulder Disposition: HOME SELF-CARE Condition: Stable Instructions: Rotator Cuff Tendinitis (ED) Additional Instructions: Please return to the Emergency Department if symptoms worsen or any other concerns. Prescriptions: Ibuprofen [Motrin] 600 mg PO Q8HR PRN #30 tab PRN Reason: Pain Is patient prescribed a controlled substance at d/c from ED?: No Referrals: Aashish Angelo DO [Primary Care Provider] - 1-2 days Marco Reaves MD [STAFF PHYSICIAN] - 1-2 days Time of Disposition: 23:47
--- NOTE | 2018-07-06 23:36 | XR ---
EXAMINATION TYPE: XR shoulder complete LT DATE OF EXAM: 07/06/2018 COMPARISON: NONE HISTORY: Shoulder pain TECHNIQUE: 3 views FINDINGS: There is no fracture nor dislocation. Joint spaces are normal. There are no pathologic calc ifications. IMPRESSION: Negative left shoulder exam.
[2018-07-07 00:02] VITALS: BP 161/93; PULSE 84; TEMP 97.8
== END 2018-07-07 00:02 | disposition home or self-care (01) ==
LOC: EC 22:30
DX: S46.002A Unspecified injury of muscle(s) and tendon(s) of the rotator cuff of left shoulder, initial encounter (principal); I10 Essential (primary) hypertension; E11.9 Type 2 diabetes mellitus without complications; Z79.4 Long term (current) use of insulin; Z79.899 Other long term (current) drug therapy; Z91.048 Other nonmedicinal substance allergy status; Z86.14 Personal history of Methicillin resistant Staphylococcus aureus infection; X58.XXXA Exposure to other specified factors, initial encounter
CPT/HCPCS: 99283

== ENCOUNTER → 2018-11-09 | Outpatient (CLI) | payer OTHER ==
--- NOTE | 2018-11-09 10:47 | US ---
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 Fatty liver, history of cholecystectomy EXAM MEASUREMENTS: Liver Length: 22.2 cm Gallbladder Wall: surgically absent CBD: 0.5 cm Right Kidney: 12.9 x 7.0 x 6.4 cm Difficult and limited study due to patient body habitus Pancreas: visualized portions wnl, limited by overlying midline bowel gas Liver: enlarged, heterogeneous, increased attenuation Gallbladder: surgically absent Evidence for sonographic Reaves's sign: no CBD: visualized portions wnl, limited by overlying bowel gas Right Kidney: no hydronephrosis or masses seen IMPRESSION: 1. Moderate fatty infiltration to the liver.
== END | disposition home or self-care (01) ==
LOC: RADUSWWP 07:43
PROVIDERS: ATTEND Family Medicine
DX: K76.0 Fatty (change of) liver, not elsewhere classified (principal)
CPT/HCPCS: 76705

== ENCOUNTER 2021-06-25 14:57 | Emergency (ER) | payer OTHER ==
[2021-06-25 15:18] VITALS: RESP 18
[2021-06-25 19:13] LABS: Glucose,Whole Blood 77 mg/dL (75-99)
--- NOTE | 2021-06-25 23:16 | ED ---
Psych HPI - General Source: patient Mode of arrival: ambulatory <Esme Powell - Last Filed: 06/25/21 23:15> - History of Present Illness MD Complaint: suicidal ideation, feels depressed Associated Psychiatric Symptoms: depression, suicidal ideation Quality: getting worse Treatments Prior to Arrival: placed on mental health hold If Self Harm: admits thoughts of self harm <Abimael Kaur - Last Filed: 06/26/21 06:25> - General Chief Complaint: Psychiatric Symptoms Stated Complaint: mental health - History of Present Illness Initial Comments: Patient is a 50-year-old male with past nuchal history of diabetes, hypertension presents emergency department with reported suicidal ideations. Patient states he's been depressed for the past couple of months however has gotten to the point where he wants to kill himself. He is a diabetic and has insulin at home. States that his suicidal plan would be to inject himself with a bunch insulin. States that at this point he is not eating and continues to take his medications. He denies previous history of psychiatric hospitalization. He has been seeing a therapist however is not on any medications for his mood. He denies any suicidal attempts. No homicidal ideations. Denies substance abuse history. Patient reports to multiple life stressors including his ex-, financial reasons. He states that he lives in his sister's basement and has been unable to see his kids. He states he has no further hope in life and does not care if he dies (Esme Powell) - Related Data Home Medications Medication Instructions Recorded Confirmed atenoloL [Tenormin] 50 mg PO DAILY 12/01/16 06/25/21 Aspirin EC [Ecotrin Low Dose] 81 mg PO DAILY 06/25/21 06/25/21 INSULIN LISPRO (HumaLOG) [humaLOG] 30 units SQ AC-TID 06/25/21 06/25/21 Insulin Glargine,Hum.rec.anlog 60 unit SQ HS 06/25/21 06/25/21 [Lantus Solostar Pen] L.acidoph,Paracasei, B.lactis 1 cap PO DAILY 06/25/21 06/25/21 [Probiotic] Liraglutide [Victoza 3-Zach] 1.8 mg SQ DAILY 06/25/21 06/25/21 Loperamide [Imodium] 2 mg PO DAILY 06/25/21 06/25/21 Multivit-Mins/Iron/Folic/Lycop 1 tab PO DAILY 06/25/21 06/25/21 [Centrum Men's Tablet] Mv-Min/Vit C/Glut/Lysine/Hb124 1 tab PO DAILY 06/25/21 06/25/21 [Immune Support Chewable Tablet] lisinopriL 40 mg PO DAILY 06/25/21 06/25/21 metFORMIN HCL ER [Glucophage XR] 500 mg PO DAILY 06/25/21 06/25/21 Allergies Allergy/AdvReac Type Severity Reaction Status Date / Time BANDAIDES AdvReac Rash/Hives Uncoded 06/25/21 19:31 Review of Systems ROS Other: All systems not noted in ROS Statement are negative. <Esme Powell - Last Filed: 06/25/21 23:15> ROS Other: All systems not noted in ROS Statement are negative. <Abimael Kaur - Last Filed: 06/26/21 06:25> ROS Statement: Those systems with pertinent positive or pertinent negative responses have been documented in the HPI. Past Medical History Past Medical History: Diabetes Mellitus, Hypertension Additional Past Medical History / Comment(s): kidney stone, arthritis, bone spur History of Any Multi-Drug Resistant Organisms: MRSA Date of last positivie culture/infection: 11/01/2014 MDRO Source:: Abdomen-pt unaware of dx of MRSA Past Surgical History: Cholecystectomy Additional Past Surgical History / Comment(s): vasectomy Past Anesthesia/Blood Transfusion Reactions: No Reported Reaction Past Psychological History: Depression Smoking Status: Never smoker Past Alcohol Use History: Rare Past Drug Use History: None Reported <Esme Powell - Last Filed: 06/25/21 23:15> General Exam Limitations: no limitations <Esme Powell - Last Filed: 06/25/21 23:15> Course <Abimael Kaur - Last Filed: 06/26/21 06:25> Vital Signs 06/25/21 15:15 Temperature 98.3 F Pulse Rate 80 Respiratory 18 Rate Blood Pressure 168/99 O2 Sat by Pulse 95 Oximetry - Reevaluation(s) Reevaluation #1: 06/26/21 06:24 Record clear for psychiatric evaluation (Abimael Kaur) Medical Decision Making <Esme Powell - Last Filed: 06/25/21 23:15> - Lab Data Result diagrams: 06/25/21 23:15 06/25/21 23:15 <Abimael Kaur - Last Filed: 06/26/21 06:25> - Medical Decision Making Upon arrival the patient is placed into room 8. A thorough history and physical exam is performed. Patient is acutely suicidal at this time. He does provide a urine sample. Glucose is obtained and is 77. Patient is evaluated by EPS and they do feel that the patient needs to be psychiatrically placed. We will obtain laboratory studies on the patient and they're currently looking for placement (Esme Powell) 50 male seen and evaluated by psychiatry, I did see patient filled out certification for placement and inpatient psychiatric evaluation and treatment (Abimael Kaur) - Lab Data Lab Results 06/25/21 06/25/21 06/25/21 Range/Units 19:11 21:00 23:15 WBC 8.2 (3.8-10.6) k/uL RBC 4.57 (4.30-5.90) m/uL Hgb 14.5 (13.0-17.5) gm/dL Hct 43.1 (39.0-53.0) % MCV 94.3 (80.0-100.0) fL MCH 31.8 (25.0-35.0) pg MCHC 33.7 (31.0-37.0) g/dL RDW 13.8 (11.5-15.5) % Plt Count 258 (150-450) k/uL MPV 7.8 Neutrophils % 59 % Lymphocytes % 30 % Monocytes % 6 % Eosinophils % 2 % Basophils % 1 % Neutrophils # 4.9 (1.3-7.7) k/uL Lymphocytes # 2.5 (1.0-4.8) k/uL Monocytes # 0.5 (0-1.0) k/uL Eosinophils # 0.2 (0-0.7) k/uL Basophils # 0.1 (0-0.2) k/uL Sodium (137-145) mmol/L Potassium (3.5-5.1) mmol/L Chloride (98-107) mmol/L Carbon Dioxide (22-30) mmol/L Anion Gap mmol/L BUN (9-20) mg/dL Creatinine (0.66-1.25) mg/dL Est GFR (CKD-EPI)AfAm (>60 ml/min/1.73 sqM) Est GFR (CKD-EPI)NonAf (>60 ml/min/1.73 sqM) Glucose (74-99) mg/dL POC Glucose (mg/dL) 77 (75-99) mg/dL POC Glu Pile Driver Operator ID Rajan Romero Calcium (8.4-10.2) mg/dL Total Bilirubin (0.2-1.3) mg/dL AST (17-59) U/L ALT (4-49) U/L Alkaline Phosphatase (38-126) U/L Total Protein (6.3-8.2) g/dL Albumin (3.5-5.0) g/dL Urine Color Yellow Urine Appearance Clear (Clear) Urine pH 6.0 (5.0-8.0) Ur Specific [place] 1.021 (1.001-1.035) Urine Protein Trace H (Negative) Urine Glucose (UA) Negative (Negative) Urine Ketones 2+ H (Negative) Urine Blood Negative (Negative) Urine Nitrite Negative (Negative) Urine Bilirubin Negative (Negative) Urine Urobilinogen <2.0 (<2.0) mg/dL Ur Leukocyte Esterase Negative (Negative) Urine Opiates Screen Not Detected (NotDetected) Ur Oxycodone Screen Not Detected (NotDetected) Urine Methadone Screen Not Detected (NotDetected) Ur Propoxyphene Screen Not Detected (NotDetected) Ur Barbiturates Screen Not Detected (NotDetected) U Tricyclic Antidepress Not Detected (NotDetected) Ur Phencyclidine Scrn Not Detected (NotDetected) Ur Amphetamines Screen Not Detected (NotDetected) U Methamphetamines Scrn Not Detected (NotDetected) U Benzodiazepines Scrn Not Detected (NotDetected) Urine Cocaine Screen Not Detected (NotDetected) U Marijuana (THC) Screen Detected H (NotDetected) Coronavirus (PCR) (Not Detectd) 06/25/21 06/26/21 06/26/21 Range/Units 23:15 01:24 05:07 WBC (3.8-10.6) k/uL RBC (4.30-5.90) m/uL Hgb (13.0-17.5) gm/dL Hct (39.0-53.0) % MCV (80.0-100.0) fL MCH (25.0-35.0) pg MCHC (31.0-37.0) g/dL RDW (11.5-15.5) % Plt Count (150-450) k/uL MPV Neutrophils % % Lymphocytes % % Monocytes % % Eosinophils % % Basophils % % Neutrophils # (1.3-7.7) k/uL Lymphocytes # (1.0-4.8) k/uL Monocytes # (0-1.0) k/uL Eosinophils # (0-0.7) k/uL Basophils # (0-0.2) k/uL Sodium 137 (137-145) mmol/L Potassium 3.7 (3.5-5.1) mmol/L Chloride 104 (98-107) mmol/L Carbon Dioxide 26 (22-30) mmol/L Anion Gap 7 mmol/L BUN 10 (9-20) mg/dL Creatinine 0.46 L (0.66-1.25) mg/dL Est GFR (CKD-EPI)AfAm >90 (>60 ml/min/1.73 sqM) Est GFR (CKD-EPI)NonAf >90 (>60 ml/min/1.73 sqM) Glucose 71 L (74-99) mg/dL POC Glucose (mg/dL) 72 L (75-99) mg/dL POC Glu Pile Driver Operator ID Fidelia Altamirano Calcium 8.9 (8.4-10.2) mg/dL Total Bilirubin 1.0 (0.2-1.3) mg/dL AST 32 (17-59) U/L ALT 23 (4-49) U/L Alkaline Phosphatase 64 (38-126) U/L Total Protein 6.8 (6.3-8.2) g/dL Albumin 3.6 (3.5-5.0) g/dL Urine Color Urine Appearance (Clear) Urine pH (5.0-8.0) Ur Specific [place] (1.001-1.035) Urine Protein (Negative) Urine Glucose (UA) (Negative) Urine Ketones (Negative) Urine Blood (Negative) Urine Nitrite (Negative) Urine Bilirubin (Negative) Urine Urobilinogen (<2.0) mg/dL Ur Leukocyte Esterase (Negative) Urine Opiates Screen (NotDetected) Ur Oxycodone Screen (NotDetected) Urine Methadone Screen (NotDetected) Ur Propoxyphene Screen (NotDetected) Ur Barbiturates Screen (NotDetected) U Tricyclic Antidepress (NotDetected) Ur Phencyclidine Scrn (NotDetected) Ur Amphetamines Screen (NotDetected) U Methamphetamines Scrn (NotDetected) U Benzodiazepines Scrn (NotDetected) Urine Cocaine Screen (NotDetected) U Marijuana (THC) Screen (NotDetected) Coronavirus (PCR) Not Detected (Not Detectd) Disposition <Esme Powell A - Last Filed: 06/25/21 23:15> Is patient prescribed a controlled substance at d/c from ED?: No <Abimael Kaur - Last Filed: 06/26/21 06:25> Clinical Impression: Suicidal ideation, Depression Disposition: TRANSFER TO PSYCH HOSP/UNIT Condition: Fair Referrals: David Avitia MD [Primary Care Provider] - 1-2 days
[2021-06-26 00:15] LABS: Basophils # (A) 0.1 k/uL (0-0.2); Basophils % (A) 1 %; Eosinophils # (A) 0.2 k/uL (0-0.7); Eosinophils % (A) 2 %; HCT 43.1 % (39.0-53.0); HGB 14.5 gm/dL (13.0-17.5); Lymphocytes # (A) 2.5 k/uL (1.0-4.8); Lymphocytes % (A) 30 %; MCH 31.8 pg (25.0-35.0); MCHC 33.7 g/dL (31.0-37.0); MCV 94.3 fL (80.0-100.0); Mean Platelet Volume 7.8; Monocytes # (A) 0.5 k/uL (0-1.0); Monocytes % (A) 6 %; Neutrophils # (A) 4.9 k/uL (1.3-7.7); Neutrophils % (A) 59 %; Platelet Count 258 k/uL (150-450); RBC 4.57 m/uL (4.30-5.90); RDW 13.8 % (11.5-15.5); WBC 8.2 k/uL (3.8-10.6)
[2021-06-26 00:19] LABS: Appearance,Urine Clear (Clear); Bilirubin,Urine Negative (Negative); Blood,Urine Negative (Negative); Color,Urine Yellow; Glucose,Urine (UA) Negative (Negative); Ketones,Urine 2+ (Negative); Leukocyte Esterase,Urine Negative (Negative); Nitrite,Urine Negative (Negative); Protein,Urine Trace (Negative); Specific Gravity,Urine 1.021 (1.001-1.035); Urobilinogen,Urine <2.0 mg/dL (<2.0)
[2021-06-26 00:34] LABS: ALT 23 U/L (4-49); AST 32 U/L (17-59); African American GFR (CKD) >90 (>60 ml/min/1.73 sqM); Albumin 3.6 g/dL (3.5-5.0); Alkaline Phosphatase 64 U/L (38-126); Anion Gap 7 mmol/L; Blood Urea Nitrogen 10 mg/dL (9-20); Calcium 8.9 mg/dL (8.4-10.2); Carbon Dioxide 26 mmol/L (22-30); Chloride 104 mmol/L (98-107); Glucose 71 mg/dL (74-99); Non-African American GFR(CKD) >90 (>60 ml/min/1.73 sqM); Potassium 3.7 mmol/L (3.5-5.1); Sodium 137 mmol/L (137-145); Total Protein 6.8 g/dL (6.3-8.2)
[2021-06-26 01:02] LABS: Amphetamine Screen,Urine Not Detected (NotDetected); Barbiturate Screen,Urine Not Detected (NotDetected); Benzodiazepines Screen,Urine Not Detected (NotDetected); Cocaine Screen,Urine Not Detected (NotDetected); Methadone Screen, Urine Not Detected (NotDetected); Opiate Screen,Urine Not Detected (NotDetected); Oxycodone Screen, Urine Not Detected (NotDetected); Phencyclidine Screen,Urine Not Detected (NotDetected); Tricyclic Antidepressant,Urine Not Detected (NotDetected); Urn Cannabinoid Scrn Detected (NotDetected)
[2021-06-26 01:25] LABS: Glucose,Whole Blood 72 mg/dL (75-99)
[2021-06-26] MEDS ORDERED: lisinopriL 20 MG TAB PO SCH (09:00)
[2021-06-26] MEDS ORDERED: atenoloL 50 MG TAB PO SCH (09:00)
[2021-06-26] MEDS ORDERED: ASPIRIN 81 MG PO SCH (09:00)
[2021-06-26 10:09] LABS: Glucose,Whole Blood 124 mg/dL (75-99)
[2021-06-26 10:12] VITALS: BP 191/95; PULSE 108; TEMP 97.7
== END 2021-06-26 10:22 ==
LOC: EC 14:57
DX: R45.851 Suicidal ideations (principal); F32.9 Major depressive disorder, single episode, unspecified; E11.9 Type 2 diabetes mellitus without complications; I10 Essential (primary) hypertension; Z79.4 Long term (current) use of insulin; Z79.82 Long term (current) use of aspirin; Z79.899 Other long term (current) drug therapy
CPT/HCPCS: 36415; 80053; 80306; 81003; 82075; 85025; 87635; 99285

== ENCOUNTER → 2021-07-10 | Outpatient (CLI) | payer OTHER ==
--- NOTE | 2021-07-10 11:51 | XR ---
EXAM TYPE: LUMBAR SPINE X RAY SERIES COMPARISON: NONE HISTORY: Pain TECHNIQUE: 4 views are submitted. FINDINGS: Alignment is anatomic. The pedicles are intact. The transverse processes are intact. There is no s pondylolysis or spondylolisthesis. Hypertrophic spurring and facet arthropathy noted at multiple lev els and most marked at L4-5 and L5-S1. Mild degenerative disc disease at multiple levels. IMPRESSION: 1. Multilevel mild degenerative disc disease with facet arthropathy most marked at L5-S1..
== END | disposition home or self-care (01) ==
LOC: RADXRMAIN 10:43
PROVIDERS: ATTEND Family Medicine
DX: M51.37 Other intervertebral disc degeneration, lumbosacral region (principal); M47.817 Spondylosis without myelopathy or radiculopathy, lumbosacral region
CPT/HCPCS: 72110

== ENCOUNTER → 2022-06-13 | Outpatient (CLI) | payer OTHER ==
[2022-06-13 14:13] VITALS: BP 155/107; RESP 94; TEMP 98.2; BMI 61.2
--- NOTE | 2022-06-13 15:24 | P.HPBAR ---
Bariatric H&P - History & Physicial H&P Date: 06/13/22 History & Physicial: Visit/CC: initial clinic visit Patient initial contact: Initial weight: Initial weight in pounds: Height: 5 ft 8.5 in Initial BMI: Last weight: Current weight: 185.519 kg Current weight in pounds: 409.00 Current BMI: 61.2 [place] body weight (based on NIH guidelines): 71.214 kg Excess body weight loss: The patient is a 51 year-old M who presents for Bariatric Assessment. Patient here today for bariatric assessment. Patient suffered was weight for many years. This is the heaviest he says he has been. BMI today 61.3. Patient with comorbidities including osteoarthritis, diabetes, hypertension, sleep apnea, chronic back pain. Denies any history of DVT or dysphagia. No tobacco use. Previous surgical history includes cholecystectomy and mastectomy. Patient with chronic diarrhea after his gallbladder removal. Review of Systems The patient denies any acute changes in vision or hearing, no dysphagia or odynophagia, no chest pain or shortness of breath, no dysuria or hematuria, no headache, no runny nose, no rectal bleeding or melena, no unexplained weight loss Past Medical History Past Medical History: Diabetes Mellitus, Hypertension Additional Past Medical History / Comment(s): kidney stone, arthritis, bone spur History of Any Multi-Drug Resistant Organisms: MRSA Year Discovered:: 11/01/2014 MDRO Source:: Abdomen-pt unaware of dx of MRSA Past Surgical History: Cholecystectomy Additional Past Surgical History / Comment(s): vasectomy Past Anesthesia/Blood Transfusion Reactions: No Reported Reaction Past Psychological History: Depression Smoking Status: Never smoker Past Alcohol Use History: Rare Past Drug Use History: None Reported Surgical - Exam Vital Signs Temp Resp BP 98.2 F 94 H 155/107 06/13/22 14:09 06/13/22 14:09 06/13/22 14:09 Physical exam: General: Well-developed, well-nourished HEENT: Normocephalic, sclerae nonicteric Abdomen: Nontender, nondistended Extremities: Bilateral lower extremity Neuro: Alert and oriented Bariatric Assessment & Plan (1) Morbid obesity with BMI of 60.0-69.9, adult Narrative/Plan: 51-year-old male with severe morbid obesity. Current BMI 61.3. Discussed options with the patient. We discussed the risks and benefits of gastric bypass and sleeve gastrectomy at this time. Patient was informed that his chance of improving his diabetes and the degree of weight loss would likely be better with gastric bypass. Patient states that is the reason he is having this procedure performed and he would like to investigate gastric bypass as an option further at this time. I informed the patient that I do not perform gastric bypass. We'll refer to a bariatric surgeon performing the procedure at this time. Meanwhile patient will continue to consider his surgical options. If he decides on sleeve gastrectomy patient will notify me and we'll proceed accordingly. Meanwhile continue with supervised weight loss program. Status: Acute Bariatric Checklist Checklist: Plan: Checklist: EGD: 1. Hiatal hernia: 2. H. Pylori: HgbA1c: Vitamin D: Smoking: Never smoker Primary care physician referral: [facility] Psychiatry clearance: Cardiology clearance: Sleep study: Diet journal: VTE risk score: VTE risk level: Rehab needs at discharge:
== END ==
LOC: BARWHC3 13:00
PROVIDERS: ATTEND Surgery
DX: E66.01 Morbid (severe) obesity due to excess calories (principal); Z68.44 Body mass index [BMI] 60.0-69.9, adult; E11.9 Type 2 diabetes mellitus without complications; I10 Essential (primary) hypertension; F32.A Depression, unspecified; M19.90 Unspecified osteoarthritis, unspecified site; Z91.048 Other nonmedicinal substance allergy status
CPT/HCPCS: 99211

== ENCOUNTER 2024-08-13 20:53 | Emergency (ER) | payer OTHER ==
[2024-08-13 20:58] VITALS: TEMP 98.5
[2024-08-13] MEDS: FAMOTIDINE 20 MG TAB PO STA (22:37)
[2024-08-13] MEDS: predniSONE 20 MG TAB PO STA (22:38)
--- NOTE | 2024-08-13 22:56 | ED ---
Skin/Abscess/FB HPI - General Chief complaint: Skin/Abscess/Foreign Body Stated complaint: Allergic Reaction Time Seen by Provider: 08/13/24 22:15 Source: patient, RN notes reviewed Mode of arrival: wheelchair Limitations: no limitations - History of Present Illness Initial comments: 53-year-old male presenting for rash x 1 day. States he was sitting at home when he began to feel itchiness in his neck. He then began to notice a red, itchy rash spreading to his bilateral arms and trunk as well. Denies fevers, chest pain, shortness of breath. Denies lip or tongue swelling. Denies new medications, soaps, lotions, detergents. Has not been outdoors or exposed to brush. He has never had this before. He does take insulin for diabetes. He took Benadryl at approximately 6 PM with little relief. - Related Data Home Medications Medication Instructions Recorded Confirmed atenoloL [Tenormin] 50 mg PO DAILY 12/01/16 06/13/22 Aspirin EC [Ecotrin Low Dose] 81 mg PO DAILY 06/25/21 06/13/22 INSULIN LISPRO (HumaLOG) [humaLOG] 30 units SQ AC-TID 06/25/21 06/13/22 Insulin Glargine,Hum.rec.anlog 60 unit SQ HS 06/25/21 06/13/22 [Lantus Solostar Pen] L.acidoph,Paracasei, B.lactis 1 cap PO DAILY 06/25/21 06/13/22 [Probiotic] Liraglutide [Victoza 3-Zach] 1.8 mg SQ DAILY 06/25/21 06/13/22 Loperamide [Imodium] 2 mg PO DAILY 06/25/21 06/13/22 Multivit-Mins/Iron/Folic/Lycop 1 tab PO DAILY 06/25/21 06/13/22 [Centrum Men's Tablet] Mv-Min/Vit C/Glut/Lysine/Hb124 1 tab PO DAILY 06/25/21 06/13/22 [Immune Support Chewable Tablet] lisinopriL 40 mg PO DAILY 06/25/21 06/13/22 metFORMIN HCL ER [Glucophage XR] 500 mg PO DAILY 06/25/21 06/13/22 Previous Rx's Medication Instructions Recorded Famotidine [Pepcid] 40 mg PO DAILY 5 Days #10 tablet 08/13/24 predniSONE [Deltasone] 40 mg PO DAILY 5 Days #10 tab 08/13/24 Allergies Allergy/AdvReac Type Severity Reaction Status Date / Time BANDAIDES AdvReac Rash/Hives Uncoded 06/25/21 19:31 Review of Systems ROS Statement: Those systems with pertinent positive or pertinent negative responses have been documented in the HPI. ROS Other: All systems not noted in ROS Statement are negative. Past Medical History Past Medical History: Diabetes Mellitus, Hypertension Additional Past Medical History / Comment(s): kidney stone, arthritis, bone spur History of Any Multi-Drug Resistant Organisms: MRSA Date of last positivie culture/infection: 11/01/2014 MDRO Source:: Abdomen-pt unaware of dx of MRSA Past Surgical History: Cholecystectomy Additional Past Surgical History / Comment(s): vasectomy Past Anesthesia/Blood Transfusion Reactions: No Reported Reaction Past Psychological History: Depression Smoking Status: Never smoker Past Alcohol Use History: Rare Past Drug Use History: None Reported General Exam Limitations: no limitations General appearance: alert, in no apparent distress Head exam: Present: atraumatic, normocephalic, normal inspection Eye exam: Present: normal appearance, PERRL, EOMI. Absent: scleral icterus, conjunctival injection, periorbital swelling ENT exam: Present: normal exam, normal oropharynx, mucous membranes moist, other (No lip or tongue swelling) Neck exam: Present: normal inspection. Absent: tenderness, meningismus, lymphadenopathy Respiratory exam: Present: normal lung sounds bilaterally. Absent: respiratory distress, wheezes, rales, rhonchi, stridor Cardiovascular Exam: Present: regular rate, normal rhythm, normal heart sounds. Absent: systolic murmur, diastolic murmur, rubs, gallop, clicks Extremities exam: Present: full ROM, normal capillary refill. Absent: tenderness Neurological exam: Present: alert, oriented X3 Psychiatric exam: Present: normal affect, normal mood Skin exam: Present: warm, dry, intact, normal color, rash (Diffuse, blanching erythematous plaques present on neck, chest, abdomen, and bilateral arms. No purulence) Course Vital Signs 08/13/24 08/13/24 20:56 23:36 Temperature 98.5 F Pulse Rate 103 H 74 Respiratory 18 16 Rate Blood Pressure 162/90 154/81 O2 Sat by Pulse 97 97 Oximetry Medical Decision Making - Medical Decision Making Was pt. sent in by a medical professional or institution (MARGIE Sosa, WASHROOM ATTENDANT, urgent care, hospital, or detention...) When possible be specific @ -No Did you speak to anyone other than the patient for history (EMS, parent, family, police, friend...)? What history was obtained from this source @ -No Did you review nursing and triage notes (agree or disagree)? Why? @ -I reviewed and agree with nursing and triage notes Were old charts reviewed (outside hosp., previous admission, EMS record, old EKG, old radiological studies, urgent care reports/EKG's, detention records)? Report findings @ -No old charts were reviewed Differential Diagnosis (chest pain, altered mental status, abdominal pain women, abdominal pain men, vaginal bleeding, weakness, fever, dyspnea, syncope, headache, dizziness, GI bleed, back pain, seizure, CVA, palpatations, mental health, musculoskeletal)? @ -Contact dermatitis, cellulitis, urticaria, poison joesph, scabies EKG interpreted by me (3pts min.). @ -None X-rays interpreted by me (1pt min.). @ -None done CT interpreted by me (1pt min.). @ -None done U/S interpreted by me (1pt. min.). @ -None done What testing was considered but not performed or refused? (CT, X-rays, U/S, labs)? Why? @ -None What meds were considered but not given or refused? Why? @ -Considered IM steroids however deferred due to patient uses insulin diabetes Did you discuss the management of the patient with other professionals (professionals i.e. MARGIE Sosa, WASHROOM ATTENDANT, lab, RT, psych nurse, social service coordinator, environmental lawyer, teacher, principal gifts officer, porter sample case)? Give summary @ -No Was smoking cessation discussed for >3mins.? @ -No Was critical care preformed (if so, how long)? @ -No Were there social determinants of health that impacted care today? How? (Homelessness, low income, unemployed, alcoholism, drug addiction, transportation, low edu. Level, literacy, decrease access to med. care, care home, rehab)? @ -No Was there de-escalation of care discussed even if they declined (Discuss DNR or withdrawal of care, Hospice)? DNR status @ -No What co-morbidities impacted this encounter? (DM, HTN, Smoking, COPD, CAD, Cancer, CVA, ARF, Chemo, Hep., AIDS, mental health diagnosis, sleep apnea, morbid obesity)? @ -None Was patient admitted / discharged? Hospital course, mention meds given and route, prescriptions, significant lab abnormalities, going to OR and other pertinent info. @ -Discharged. This is a 53-year-old male presenting for rash x 1 day. Describes an itchy, red rash present on neck, chest, abdomen, and bilateral arms. No known allergen. Patient is initially hypertensive at 162/90 and mildly tachycardic at 103 bpm, however upon reevaluation blood pressure decreases to 154/81 and heart rate decreases to 74 bpm. No acute distress. No lip/tongue swelling or sign of angioedema. There is diffuse, blanching, erythematous plaques present on neck, chest, abdomen, bilateral arms. No sign of bacterial infection. Discussed diagnosis of urticaria with unknown cause. Patient was given oral prednisone and Pepcid. Prescribed steroid pack and Pepcid to pharmacy, advised to continue Benadryl. Return precautions discussed, advised to follow-up with dermatology with persistent symptoms. Patient is agreeable to plan. Case was discussed with the ED attending Dr. Kaur. Patient discharged in stable condition. Undiagnosed new problem with uncertain prognosis? @ -No Drug Therapy requiring intensive monitoring for toxicity (Heparin, Nitro, Insulin, Cardizem)? @ -No Were any procedures done? @ -No Diagnosis/symptom? @ -Urticaria Acute, or Chronic, or Acute on Chronic? @ -Acute Uncomplicated (without systemic symptoms) or Complicated (systemic symptoms)? @ -Uncomplicated Side effects of treatment? @ -No Exacerbation, Progression, or Severe Exacerbation? @ -No Poses a threat to life or bodily function? How? (Chest pain, [place], [place], pneumonia, PE, COPD, DKA, ARF, appy, cholecystitis, CVA, Diverticulitis, Homicidal, Suicidal, threat to staff... and all critical care pts) @ -No Disposition Clinical Impression: Urticaria Disposition: HOME SELF-CARE Condition: Stable Instructions (If sedation given, give patient instructions): Urticaria (ED) Additional Instructions: Take steroid and Pepcid once daily as directed. Take Benadryl every 6 hours for itchiness. Follow-up with dermatology if symptoms do not improve. Please return to the Emergency Department if symptoms worsen or any other concerns. Prescriptions: predniSONE [Deltasone] 40 mg PO DAILY 5 Days #10 tab Famotidine [Pepcid] 40 mg PO DAILY 5 Days #10 tablet Is patient prescribed a controlled substance at d/c from ED?: No Referrals: David Avitia [Primary Care Provider] - 1-2 days Time of Disposition: 23:41
[2024-08-13 23:37] VITALS: BP 154/81; PULSE 74; RESP 16
== END 2024-08-13 23:50 | disposition home or self-care (01) ==
LOC: EC 20:53
CPT/HCPCS: 99283